=== PATIENT | female | born 1975 | race Caucasian/White ===

== ENCOUNTER 2017-10-25 09:58 | Emergency (ER) | payer MEDICAID ==
[2017-10-25 10:54] LABS: URINE BLOOD (Dip) POC 2+ (NEGATIVE); URINE GLUCOSE (Dip) POC Negative (NEGATIVE); URINE KETONES (Dip) POC Negative (NEGATIVE); URINE LEUKOCYTE EST (Dip) POC Negative (NEGATIVE); URINE NITRITE (Dip) POC Negative (NEGATIVE); URINE TOTAL PROTEIN POC 1+ (NEGATIVE)
[2017-10-25] MEDS: METOCLOPRAMIDE 10 MG INJ IV (11:16)
[2017-10-25] MEDS: KETOROLAC 30 MG INJ IV (11:16)
[2017-10-25] MEDS: SOD CHLORIDE 0.9% 1,000 ML IV (11:16)
== END 2017-10-25 12:02 | disposition home or self-care (01) ==
LOC: FTE 09:58
DX: R51 Headache (principal); I10 Essential (primary) hypertension
CPT/HCPCS: 70450; 81003; 81025; 96374; 96375; 99285-25

== ENCOUNTER 2018-11-01 14:26 | Emergency (ER) | payer MEDICAID ==
[2018-11-01] MEDS: KETOROLAC 30 MG INJ IM (15:26)
== END 2018-11-01 15:57 | disposition home or self-care (01) ==
LOC: FTE 15:57
DX: R51 Headache (principal)
CPT/HCPCS: 81025; 96372; 99284-25